=== PATIENT | female | born 1995 | race Caucasian/White ===

== ENCOUNTER 2025-03-28 07:21 | Inpatient (IN) ==
[2025-03-28] MEDS ORDERED: LIDOCAINE 1% LOCAL 20 ML VIAL INFIL PRN (07:25)
[2025-03-28] MEDS ORDERED: OXYTOCIN 30 UNITS/NSS 30 UNITS/500 ML BAG IV PRN (07:25)
--- NOTE | 2025-03-28 07:54 | History & Physical Report ---
Date of Service March 28, 2025 Assessment & Plan (1) Normal labor: Plan: Pt is a 30yo at 39w 4d with hx of GDM presenting for induction of labor Routine labs ordered Pitocin ordered Epidural placement ordered if desired Monitor tracing Expectant managment for labor Glucose checks q2hrs Hepatitis B vaccine recommended Admission and Anticipated Discharge Date Admission Date: March 28, 2025 History of Present Illness Chief Complaint: IOL A2GDM Primary Care Provider: EDGAR Cole Marie is a 30y/o female currently at 39w 4d with an BRYN 03/31/25 who is here for induction of labor. Her is complicated by GDM. Currently not experiencing contractions; adequate movement; no fluid loss; no bloody show External FHT and external uterine monitors used; Category 1 tracing; FHT 135bpm with moderate variability, accelerations present, decelerations absent Had regular appointments with OB. Labs Lab Results OB Labs: Blood Type O Positive 09/29/24 Antibody Screen NEGATIVE 09/29/24 Hgb 11.7 g/dl (12.0-16.0) L 03/13/25 Hct 36.8 % (37.0-47.0) L 03/13/25 MCV 82.1 fL (80.0-100.0) 03/13/25 Plt Count 189 K/uL (130-400) 03/13/25 Rubella IgG Antibody Immune (Immune) 09/29/24 Treponema pallidum Ab Negative (Negative) 01/13/25 Hep Bs Antigen Negative (Negative) 09/29/24 Hepatitis C Antibody Negative (Negative) 09/29/24 HIV 1&2 Ab/P24 Ag 4thGn Negative (Negative) 09/29/24 Glucose 1 Hr 50 gm 166 mg/dl (70-130) H 10/16/24 OB Optional Labs: Chlamydia trachomatis RNA Not Detected (NotDetected) 09/29/24 Neisseria gonorrhoeae RNA Not Detected (NotDetected) 09/29/24 GBS: Negative Other screens: cff-DNA: Low risk Cystic Fibrosis: Negative SMA: Negative Review of Systems : Denies fever, chills, sweats Denies shortness of breath, difficulty breathing, chest pain, palpitations, chest pressure. Denies breast pain. Denies dysuria. Denies headache or changes in vision. Allergies Allergy/AdvReac Type Severity Reaction Status Date / Time No Known Allergies Allergy Verified 03/28/25 08:26 Home Medications Medication Instructions Recorded Confirmed Type aspirin 81 mg chewable tablet 81 mg PO DAILY 10/16/24 03/28/25 History breast pump #1 ea 01/17/25 03/27/25 Rx acetone (urine) test (Ketone Urine #50 ea 01/19/25 03/27/25 Rx Test strips) blood sugar diagnostic (OneTouch #150 ea 01/19/25 03/27/25 Rx Verio test strips) blood-glucose meter (OneTouch #1 ea 01/19/25 03/27/25 Rx Verio Reflect Meter) lancets 33 gauge (OneTouch Delica #150 ea 01/19/25 03/27/25 Rx Plus Lancet) pen needle, diabetic 32 gauge x #50 ea 02/22/25 03/27/25 Rx 5/32" insulin NPH isoph U-100 human 100 8 unit subcut .at bedtime 03/08/25 03/28/25 History unit/mL (3 mL) subcutaneous pen (Novolin N FlexPen) vits no.124-ferrous fum 1 tab PO DAILY 03/28/25 03/28/25 History 27 mg iron-folic acid 800 mcg tablet ( Vitamin) Patient History Medical History Abnormal Pap smear of cervix Depression Anxiety Surgical History S/P wisdom tooth extraction Family History (Updated 09/22/24 @ 14:42 by Riddhi Santiago RN) Mother Autoimmune disorder Aunt Ovarian cancer Uterine cancer Denies family history of Breast cancer Colonic polyp Social History (Updated 09/22/24 @ 15:07 by Riddhi Santiago RN) Smoking Status: Never smoker Do You Dip or Chew Tobacco: No; Hx Alcohol Use: No Hx Substance Use: No Preferred Language: Italian Communication Ability: Effective Lead Fire Protection Engineer Required: No Beliefs That Will Affect Care: None marital status: marital status details: Mario Sukhjinder (28) Current Living Situation: Spouse Current Living Situation Comment: Lives with , 1 cat- changing litter current occupational status: employed current occupation: Teacher How many Children do You have: 0 Other Information That Helps Us Care for You: No Feels Safe at Home: Yes Safety Concerns: Feels Safe At This Time Assistive Devices: None Physical Exam Physical Exam: General: patient resting comfortably, NAD, non-toxic in appearance, AAOx4, answers questions appropriately. Skin: warm, dry, intact Heart: S1/S2 heard, regular, no m/r/g Lungs: equal air entry bilaterally, no rales/rhonchi/wheezes Abd: Normoactive BS, soft, NT/ND, gravid uterus Ext: warm, no clubbing/cyanosis or edema Neuro: nonfocal, speech intact, no facial droop, moving all extremities on command : FHR baseline 135, moderate variability, accelerations present, decelerations absent, rare contractions Results & Data Vital Signs (Past 12 Hours) Vital Signs Pulse BP 03/28/25 07:42 82 133/80 Supervising Physician Co-Signing Physician Notes Resident Physician Supervision Note: I interviewed and examined the patient. Discussed with Dr. Knutson and agree with findings and plan as documented in the note. Any exceptions or clarifications are listed here: 30 yo G1 at 39 4/7 wga presents for A2GDM. PNI: A2GDM, anemia. VSS, fetus cat 1. SVE 3/60/-2, EFW 7-8. GBS neg. Will start pit, q2bg and hourly in active, epidural prn Documented By: Marquita Aviles MD Resident Activity Tracking Resident Involvement: Resident Care Provided Care Provided: OB Delivery
[2025-03-28 08:30] LABS: Hematocrit (blood only) 39.0 % (37.0-47.0); Hemoglobin 12.6 g/dl (12.0-16.0); Mean Corpuscular Hemoglobin 26.7 pg (25.0-34.0); Mean Corpuscular Volume 82.6 fL (80.0-100.0); Platelet Count 200 K/uL (130-400); RDW Standard Deviation 61.8 fL (36.4-46.3); Red Blood Count 4.72 M/uL (4.20-5.40); White Blood Count 7.00 K/ul (4.8-10.8)
[2025-03-28] MEDS: LACTATED RINGER'S 1,000 ML IV PRN (09:50)
[2025-03-28] MEDS: OXYTOCIN 30 UNITS/NSS 30 UNITS/500 ML BAG IV PRN (09:52)
--- NOTE | 2025-03-28 13:38 | Labor Progress Brief Note ---
Date of Service March 28, 2025 Subjective Getting more uncomfortable Assessment & Plan (1) Insulin controlled gestational diabetes mellitus (GDM) during : Plan: 30 yo G1 at 39 4/7 wga admitted for IOL A2GDM VSS Fetus cat 1 Labor - pit at 14, offered arom and pt would like to wait a little bit longer before arom A2GDM - BG appropriate GBS neg epidural prn Admission and Anticipated Discharge Date Admission Date: March 28, 2025 Physical Exam Genitourinary: Manual OB Exam: + cervical dilation 4 cm, + cervical effacement 70% and + station -2 OB Exam Monitor Tracing: + external FHT monitor used, + external uterine monitor used (q4) and + category I (135/mod/+accel/-decel) Results & Data Vital Signs (Past 12 Hours) Vital Signs Temp Pulse Resp BP 03/28/25 13:01 16 03/28/25 13:01 16 03/28/25 13:01 65 03/28/25 13:01 113/69 03/28/25 11:57 63 03/28/25 11:57 127/71 03/28/25 11:01 18 03/28/25 11:01 18 03/28/25 11:01 72 03/28/25 11:01 118/74 03/28/25 10:00 18 03/28/25 10:00 18 03/28/25 10:00 61 03/28/25 10:00 128/79 03/28/25 07:51 98.2 F 20 03/28/25 07:42 82 133/80 Coding Level of Care Code None Diagnoses Insulin controlled gestational diabetes mellitus (GDM) during O24.414
--- NOTE | 2025-03-28 16:11 | Anesthesiology Consultation ---
Date of Service March 28, 2025 Assessment & Plan (1) Encounter for pre-operative examination: Chart Review Chart Review: Acceptable Risk for Labor Epidural History Height/Weight Height: 5 ft 4 in Weight: 78.471 kg Allergies Allergy/AdvReac Type Severity Reaction Status Date / Time No Known Allergies Allergy Verified 03/28/25 08:26 Medications Home Medications Medication Instructions Recorded Confirmed Last Taken aspirin 81 mg chewable tablet 81 mg PO DAILY 10/16/24 03/28/25 03/28/25 06:00 breast pump #1 ea 01/17/25 03/27/25 Unknown acetone (urine) test (Ketone Urine #50 ea 01/19/25 03/27/25 Unknown Test strips) blood sugar diagnostic (OneTouch #150 ea 01/19/25 03/27/25 Unknown Verio test strips) blood-glucose meter (OneTouch #1 ea 01/19/25 03/27/25 Unknown Verio Reflect Meter) lancets 33 gauge (OneTouch Delica #150 ea 01/19/25 03/27/25 Unknown Plus Lancet) pen needle, diabetic 32 gauge x #50 ea 02/22/25 03/27/25 Unknown " insulin NPH isoph U-100 human 100 8 unit subcut .at bedtime 03/08/25 03/28/25 03/27/25 21:15 unit/mL (3 mL) subcutaneous pen (Novolin N FlexPen) vits no.124-ferrous fum 1 tab PO DAILY 03/28/25 03/28/25 03/28/25 06:00 27 mg iron-folic acid 800 mcg tablet ( Vitamin) Active Medications Generic Name Dose Route Start Last Admin Trade Name Freq PRN Reason Stop Dose Admin Oxytocin 30 units in 500 mls @ 14 mls/hr 03/28/25 07:25 03/28/25 13:00 Pitocin 30 Units/Nss IV 03/30/25 07:24 0.84 units/hr .Q24H PRN 14 mls/hr Labor Induction/Augmentation Titration Protocol 0.84 UNITS/HR Lactated Ringer's 1,000 mls @ 125 mls/hr 03/28/25 07:25 03/28/25 16:05 Lr IV 03/30/25 07:24 999 mls/hr .Q8H PRN Administration L&D Protocol Protocol Past Medical History Medical History Abnormal Pap smear of cervix Depression Anxiety Past Family History Family History Mother Autoimmune disorder Aunt Ovarian cancer Uterine cancer Denies family history of Breast cancer Colonic polyp Past Surgical History Surgical History S/P wisdom tooth extraction Social History Smoking Status: Never smoker Do You Dip or Chew Tobacco: No Hx Alcohol Use: No Hx Substance Use: No Physical Exam Vital Signs Last Vital Signs Temp 36.7 C 03/28/25 13:40 Pulse 84 03/28/25 15:49 Resp 20 03/28/25 13:40 BP 136/80 03/28/25 15:49 Testing Laboratory Results 03/28/25 07:36 03/28/25 03/28/25 03/28/25 15:46 13:41 11:51 POC Glucose 88 91 108 H 03/28/25 03/28/25 09:47 07:47 POC Glucose 102 H 119 H
[2025-03-28] MEDS: BUPIVACAINE 0.25% PF 30 ML VIAL ONE (16:36)
[2025-03-28] MEDS: fentANYL 2 MCG/ML BUPIVacaine 0.125%-NSS 100ML BAG ONE (16:39)
[2025-03-28] MEDS ORDERED: NALOXONE HCL 1 MG in SODIUM CHLORIDE 0.9% 1,000 ML IV PRN (16:43)
[2025-03-28] MEDS ORDERED: ONDANSETRON INJ 2 MG/ML 2 ML VIAL IV PRN (16:43)
[2025-03-28] MEDS ORDERED: BUPIVACAINE 0.25% PF 30 ML VIAL EPI PRN (16:43)
[2025-03-28] MEDS ORDERED: LIDOCAINE 2% MPF LOCAL 5 ML VIAL EPI PRN (16:43)
[2025-03-28] MEDS ORDERED: NALOXONE HCL 0.4 MG/1 ML VIAL/CARP IV PRN (16:43)
[2025-03-28] MEDS ORDERED: SODIUM CHLORIDE 0.9% PF INJ 10 ML VIAL EPI PRN (16:43)
[2025-03-28] MEDS ORDERED: ROPIVACAINE 0.5% PF 5 MG/ML 20 ML VIAL EPI PRN (16:43)
[2025-03-28] MEDS: LIDOCAINE 2%/EPINEPHRINE 1:200,000 20 ML PF ONE (16:46)
[2025-03-28] MEDS: SODIUM CHLORIDE 0.9% PF INJ 10 ML VIAL EPI STA (17:19)
[2025-03-28] MEDS: BUPIVACAINE 0.25% PF 30 ML VIAL EPI STA (17:20)
[2025-03-28] MEDS: LIDOCAINE 2%/EPINEPHRINE 1:200,000 20 ML PF EPI STA (17:20)
[2025-03-28] MEDS: SODIUM CHLORIDE 0.9% PF INJ 10 ML VIAL ONE (17:20)
--- NOTE | 2025-03-28 20:10 | Labor Progress Brief Note ---
Date of Service March 28, 2025 Subjective comfortable w/ epidural Assessment & Plan (1) Insulin controlled gestational diabetes mellitus (GDM) during : Plan: 30 yo G1 at 39 4/7 wga admitted for IOL A2GDM VSS Fetus cat 1 Labor - pit at 14, planned to arom but appears to have srom b/w rn check and my check. Now 8cm, good progress A2GDM - BG appropriate GBS neg epidural in place Admission and Anticipated Discharge Date Admission Date: March 28, 2025 Physical Exam Genitourinary: Manual OB Exam: + cervical dilation 8 cm, + cervical effacement 90% and + station 0 OB Exam Monitor Tracing: + external FHT monitor used, + external uterine monitor used (q3) and + category I (145/mod/+accel/-decel) Results & Data Vital Signs (Past 12 Hours) Vital Signs Temp Pulse Resp BP Pulse Ox 03/28/25 20:04 99 03/28/25 20:04 82 03/28/25 20:04 102 H 03/28/25 20:04 122/74 03/28/25 19:59 99 03/28/25 19:59 75 03/28/25 19:54 97 03/28/25 19:54 70 03/28/25 19:49 97 03/28/25 19:49 72 03/28/25 19:48 71 03/28/25 19:48 112/57 L 03/28/25 19:44 97 03/28/25 19:44 71 03/28/25 19:39 97 03/28/25 19:39 75 03/28/25 19:34 96 03/28/25 19:34 72 03/28/25 19:34 66 03/28/25 19:34 107/55 L 03/28/25 19:29 97 03/28/25 19:29 77 03/28/25 19:24 98 03/28/25 19:24 66 03/28/25 19:19 98 03/28/25 19:19 83 03/28/25 19:18 71 03/28/25 19:18 124/70 03/28/25 19:15 98.2 F 18 03/28/25 19:14 97 03/28/25 19:14 66 03/28/25 19:09 98 03/28/25 19:09 74 03/28/25 19:04 97 03/28/25 19:04 86 03/28/25 19:04 116/68 03/28/25 19:01 20 03/28/25 19:01 20 03/28/25 18:59 99 03/28/25 18:59 69 03/28/25 18:54 98 03/28/25 18:54 75 03/28/25 18:49 98 03/28/25 18:49 91 H 03/28/25 18:48 93 H 03/28/25 18:48 119/68 03/28/25 18:44 98 03/28/25 18:44 89 03/28/25 18:39 98 03/28/25 18:39 82 03/28/25 18:34 98 03/28/25 18:34 108 H 03/28/25 18:34 77 03/28/25 18:34 126/77 03/28/25 18:29 99 03/28/25 18:29 74 03/28/25 18:24 99 03/28/25 18:24 60 03/28/25 18:19 98 03/28/25 18:19 58 L 03/28/25 18:18 69 03/28/25 18:18 128/77 03/28/25 18:16 20 03/28/25 18:16 20 03/28/25 18:14 98 03/28/25 18:14 63 03/28/25 18:09 99 03/28/25 18:09 66 03/28/25 18:04 99 03/28/25 18:04 76 03/28/25 18:04 129/73 03/28/25 17:59 99 03/28/25 17:59 80 03/28/25 17:54 100 03/28/25 17:54 74 03/28/25 17:49 100 03/28/25 17:49 60 03/28/25 17:48 90 03/28/25 17:48 122/76 03/28/25 17:46 20 03/28/25 17:46 98.1 F 20 03/28/25 17:44 100 03/28/25 17:44 62 03/28/25 17:39 100 03/28/25 17:39 80 03/28/25 17:35 76 03/28/25 17:35 131/77 03/28/25 17:34 100 03/28/25 17:34 73 03/28/25 17:28 100 03/28/25 17:28 73 03/28/25 17:23 100 03/28/25 17:23 68 03/28/25 17:19 67 03/28/25 17:19 119/65 03/28/25 17:18 100 03/28/25 17:18 68 03/28/25 17:16 20 03/28/25 17:16 20 03/28/25 17:13 100 03/28/25 17:13 68 03/28/25 17:08 100 03/28/25 17:08 68 03/28/25 17:03 100 03/28/25 17:03 79 03/28/25 17:02 68 03/28/25 17:02 142/70 H 03/28/25 16:58 100 03/28/25 16:58 66 03/28/25 16:58 130/66 03/28/25 16:53 100 03/28/25 16:53 78 03/28/25 16:52 74 03/28/25 16:52 126/67 03/28/25 16:48 100 03/28/25 16:48 72 03/28/25 16:46 20 03/28/25 16:46 20 03/28/25 16:46 79 03/28/25 16:46 130/71 03/28/25 16:44 77 03/28/25 16:44 127/69 03/28/25 16:43 100 03/28/25 16:43 69 03/28/25 16:42 70 03/28/25 16:42 130/79 03/28/25 16:40 64 03/28/25 16:40 132/77 03/28/25 16:38 100 03/28/25 16:38 74 03/28/25 16:38 76 03/28/25 16:38 134/82 03/28/25 16:36 83 03/28/25 16:36 128/72 03/28/25 16:34 85 03/28/25 16:34 130/70 03/28/25 16:33 100 03/28/25 16:33 78 03/28/25 16:32 93 H 03/28/25 16:32 135/70 03/28/25 16:28 100 03/28/25 16:28 82 03/28/25 16:23 95 03/28/25 16:23 83 03/28/25 16:23 133/68 03/28/25 15:49 84 03/28/25 15:49 136/80 03/28/25 14:43 79 03/28/25 14:43 126/81 03/28/25 13:50 73 03/28/25 13:50 132/74 03/28/25 13:40 20 03/28/25 13:40 98.1 F 20 03/28/25 13:01 16 03/28/25 13:01 16 03/28/25 13:01 65 03/28/25 13:01 113/69 03/28/25 11:57 63 03/28/25 11:57 127/71 03/28/25 11:01 18 03/28/25 11:01 18 03/28/25 11:01 72 03/28/25 11:01 118/74 03/28/25 10:00 18 03/28/25 10:00 18 03/28/25 10:00 61 03/28/25 10:00 128/79 Coding Level of Care Code None Diagnoses Insulin controlled gestational diabetes mellitus (GDM) during O24.414
[2025-03-29] MEDS: fentANYL 2 MCG/ML BUPIVacaine 0.125%-NSS 100ML BAG EPI PRN
--- NOTE | 2025-03-29 00:41 | Delivery Summary ---
Vaginal Delivery Summary Date of Service March 29, 2025 Vaginal Delivery Summary [facility] PREOPERATIVE DIAGNOSIS: 1. Single intrauterine at 39 5/7 wga 2. A2GDM POSTOPERATIVE DIAGNOSIS: 1. Single intrauterine at 39 5/7 wga 2. A2GDM 3. Delivered PROCEDURE: 1. Normal spontaneous vaginal delivery. SURGEON: Marquita Aviles MD ANESTHESIA: Epidural. QUANTITATIVE BLOOD LOSS: 215 mL FLUIDS: Continuous LR. URINE OUTPUT: 50cc by straight cath after delivery COMPLICATIONS: None. CONDITION: Stable. INDICATIONS: 30 yo G1 at 39 5/7 wga presented for IOL for A2GDM. She was 3cm on arrival and started on pitocin. She received an epidural for pain control and progressed well on pitocin. She had srom and progressed to complete and desired to push FINDINGS: A viable male infant, weight pending with Apgars of 8 and 9 at 1 and 5 minutes respectively. SPECIMEN: Cord blood OPERATIVE REPORT: The patient progressed to 10 cm, 100% effaced and +2 station, pushed over intact perineum with anesthesia to deliver a viable male , weight and Apgars as above. Head of delivered in ROLANDO position. No nuchal cord was present. Body and shoulders were delivered without difficulty. was delivered to maternal abdomen and nursing staff. Delayed cord clamping was performed for 60 seconds. Cord was clamped and cut. Cord blood was obtained. Placenta delivered spontaneously intact with 3-vessel cord. IV oxytocin and fundal massage were given for excellent hemostasis. Vagina, cervix, perineum, and placenta were inspected. Bilateral labial lacerations were repaired using 3- 0 vicryl in the usual fashion. There was good hemostasis. Sponge and needle co unts correct x2. No sponges were left behind. Mother and stable in immediate period. [facility] [place] Vaginal Delivery Codes: 62641 global code for the antepartum, delivery, and post- Delivery Type Details: [facility]
[2025-03-29] MEDS ORDERED: OXYTOCIN 30 UNITS/NSS 30 UNITS/500 ML BAG IV PRN (00:45)
[2025-03-29] MEDS ORDERED: HYDROCORTISONE ACETATE 25 MG SUPP PR PRN (00:45)
[2025-03-29] MEDS: DIPHTHER/TETAN/PERTUS Vaccine (Tdap, Adol/Adult) 0.5mL IM ONE (01:58)
[2025-03-29] MEDS: IBUPROFEN 600 MG TAB PO PRN (02:38)
[2025-03-29] MEDS: BENZOCAINE 20% SPRY 85 APPLN/85 GM CAN EXT PRN (02:39)
[2025-03-29] MEDS: DOCUSATE SODIUM 100 MG CAP PO SCH (08:19)
[2025-03-29] MEDS: PRENATAL VITAMIN 1 TAB PO SCH (08:19)
--- NOTE | 2025-03-29 09:28 | Anesthesia Procedure Note ---
Date of Service March 29, 2025 Anesthesia Post Epidural Note Vital Signs Vital Signs: Temp Pulse Resp BP Pulse Ox O2 Del Method 36.9 C 84 18 140/87 98 Room Air 03/29/25 05:35 03/29/25 04:00 03/29/25 04:00 03/29/25 04:00 03/29/25 04:00 03/29/25 04:00 Notes Mental Status: alert / awake / arousable Nausea / Vomiting: adequately controlled Pain: adequately controlled Airway Patency, RR, SpO2: stable & adequate BP & HR: stable & adequate Hydration State: stable & adequate Neuraxial Anesthesia: was administered and sensory block is resolving Anesthetic Complications: no major complications apparent and Pt Satisfied with anesthetic care Epidural: Removed without complications and With tip intact
[2025-03-29] MEDS: ACETAMINOPHEN 325 MG TAB PO PRN (10:26)
--- NOTE | 2025-03-30 05:42 | Obstetrical Progress Note ---
Date of Service <Jamison Knutson MD - Last Filed: 03/30/25 08:07> March 30, 2025 Assessment & Plan <Jamison Knutson MD - Last Filed: 03/30/25 08:07> (1) care and examination: 30yo post- day 1 s/p Fells well today Continue post- care Encourage ambulation and and bottle feeding Pain controlled with Ibuprofen, Tylenol Vital Signs and Hgb stable Plan to d/c tomorrow <Norman Andrea MD - Last Filed: 04/02/25 11:22> (1) care and examination: Subjective <Jamison Knutson MD - Last Filed: 03/30/25 08:07> 30yo post- day 1 s/p Ambulation: Ambulating normally Voiding: No voiding problems Passing Gas:: Yes Diet Tolerance:: regular diet Lochia:: moderate Feeding Type:: breast and bottle feeding Current Pain Level: 3/10 controlled with Tylenol, Ibuprofen Resting comfortably this AM in NAD. Denies SINGH, CP, SOB, N/V/D, LE pain/swelling. Physical Exam <Jamison Knutson MD - Last Filed: 03/30/25 08:07> General: patient resting comfortably, NAD, non-toxic in appearance, answers questions appropriately Skin: warm, dry, intact Heart: S1/S2 heard, regular, no m/r/g Lungs: equal air entry bilaterally, no rales/rhonchi/wheezes Abd: Normoactive BS, soft, NT/ND, uterine fundus firm at umbilicus Ext: warm, no clubbing/cyanosis or edema, Sara's neg Neuro: nonfocal, patient AAOx4, speech intact, no facial droop, moving all extremities on command Results & Data <Jamison Knutson MD - Last Filed: 03/30/25 08:07> Vital Signs (Past 12 Hours) Vital Signs Temp Pulse Resp BP Pulse Ox O2 Del Method 03/29/25 22:44 36.6 C 62 16 106/66 97 Room Air 03/29/25 19:25 Room Air 03/29/25 19:03 36.8 C 67 16 118/74 98 Room Air Supervising Physician <Norman Andrea MD - Last Filed: 04/02/25 11:22> Co-Signing Physician Notes Patient seen with resident and agree with the above findings and plan. Routine post care Resident Activity Tracking <Jamison Knutson MD - Last Filed: 03/30/25 08:07> Resident Involvement: Resident Care Provided Care Provided: OB Delivery
[2025-03-30 23:57] VITALS: O2SAT 96
--- NOTE | 2025-03-31 07:30 | Obstetrical Progress Note ---
Date of Service <Jamison Knutson MD - Last Filed: 03/31/25 07:32> March 31, 2025 Assessment & Plan <Jamison Knutson MD - Last Filed: 03/31/25 07:32> (1) care and examination: 30yo post- day 2 s/p Fells well today Continue post- care Encourage ambulation and and bottle feeding Pain controlled with Ibuprofen, Tylenol Vital Signs and Hgb stable D/c: Follow with OB provider in 6 weeks D/c instructions discussed <Heidi Antonio DO - Last Filed: 03/31/25 08:25> (1) care and examination: Subjective <Jamison Knutson MD - Last Filed: 03/31/25 07:32> 30yo post- day 2 s/p Ambulation: Ambulating normally Voiding: No voiding problems Passing Gas:: Yes Diet Tolerance:: regular diet Lochia:: small Feeding Type:: breast and bottle feeding Current Pain Level: 0/10 controlled with Tylenol, Ibuprofen Resting comfortably this AM in NAD. Denies SINGH, CP, SOB, N/V/D, LE pain/swelling. Physical Exam <Jamison Knutson MD - Last Filed: 03/31/25 07:32> General: patient resting comfortably, NAD, non-toxic in appearance, answers questions appropriately Skin: warm, dry, intact Heart: S1/S2 heard, regular, no m/r/g Lungs: equal air entry bilaterally, no rales/rhonchi/wheezes Abd: Normoactive BS, soft, NT/ND, uterine fundus firm at umbilicus Ext: warm, no clubbing/cyanosis or edema, Sara's neg Neuro: nonfocal, patient AAOx4, speech intact, no facial droop, moving all extremities on command Results & Data <Jamison Knutson MD - Last Filed: 03/31/25 07:32> Vital Signs (Past 12 Hours) Vital Signs Temp Pulse Resp BP Pulse Ox O2 Del Method 03/30/25 23:55 36.7 C 60 16 135/75 96 Room Air 03/30/25 20:30 36.7 C 56 L 16 120/75 98 Room Air Supervising Physician <Heidi Antonio DO - Last Filed: 03/31/25 08:25> Co-Signing Physician Notes Resident Physician Supervision Note: I interviewed and examined the patient. Discussed with Dr. Knutson and agree with findings and plan as documented in the note. Any exceptions or clarifications are listed here: PPD#2 doing well DC home. Documented By: Heidi Antonio DO Resident Activity Tracking <Jamison Knutson MD - Last Filed: 03/31/25 07:32> Resident Involvement: Resident Care Provided Care Provided: OB Delivery
[2025-03-31 09:18] VITALS: BP 126/80; PULSE 71; RESP 18; TEMP 98.2
== END 2025-03-31 11:33 | disposition home or self-care (01) | DRG 807 ==
LOC: 4S1 07:21 → 4E2 03-29 04:37